=== PATIENT | female | born 1940 | race Caucasian/White ===

== ENCOUNTER → 2018-05-12 | Outpatient (REF) | payer MEDICARE | END | disposition home or self-care (01) | LOC: STRESS 10:46 → NUCMED 11:15 | PROVIDERS: ATTEND Internal Medicine | DX: I20.9 Angina pectoris, unspecified (principal); I70.213 Atherosclerosis of native arteries of extremities with intermittent claudication, bilateral legs | CPT/HCPCS: A9502; J0706; J2785 ==